=== PATIENT | female | born 1985 | race African-American/Black ===

== ENCOUNTER 2016-11-10 13:59 | Emergency (ER) | payer OTHER ==
[~2016-11-10 13:59] MED LIST: CARBAMAZEPINE200 M6 PO; COLACE100 M1 PO; FOLIC ACID1 M1 PO; IBUPROFEN800 M1 PO; IRON325 M2 PO; MEPHYTON5 M1 PO; NORCO 5-325 TA1 EACH PO; PRENATAL TABLE1 EAC3 PO; TEGRETOL200 MG PO
[2016-11-10] MEDS ORDERED: LISINOPRIL10 M1 PO (14:16)
[2016-11-10] MEDS ORDERED: AMOXICILLIN500 M2 PO (14:18)
[2016-11-10] MEDS ORDERED: NORCO 5-325 TA1 EACH PO (14:18)
== END 2016-11-10 14:29 ==
LOC: EDMED 13:59
DX: K08.89 Other specified disorders of teeth and supporting structures (principal)